=== PATIENT | male | born 1980 | race Caucasian/White ===

== ENCOUNTER → 2021-04-06 | Outpatient (CLI) | payer BC ==
[~2021-04-06] VITALS: Ht 185.4 cm; Wt 94.0 kg
[~2021-04-06] MED LIST: NO HOME MEDICATIONS
[2021-04-06 09:17] VITALS: BP 114/72; PULSE 65; TEMP 98.3
[2021-04-06 10:00] VITALS: BP 136/69; PULSE 76
== END ==
LOC: COL.RAD 08:57
DX: M51.26 Other intervertebral disc displacement, lumbar region (principal)
CPT/HCPCS: J3301

== ENCOUNTER 2021-04-13 14:19 | Outpatient (RCR) | payer BC | END 2021-07-12 | LOC: MKS.ESL.PT | DX: M51.26 Other intervertebral disc displacement, lumbar region (principal) ==

== ENCOUNTER 2021-08-31 15:30 | Outpatient (RCR) | payer BC | END 2021-09-01 | LOC: MKS.ESL.PT | DX: M51.26 Other intervertebral disc displacement, lumbar region (principal); M54.16 Radiculopathy, lumbar region ==